=== PATIENT | female | born 1955 | race Caucasian/White ===

== ENCOUNTER 2018-07-13 07:30 | Inpatient (IN) | payer OTHER ==
[~2018-07-13] VITALS: Ht 147.3 cm; Wt 74.4 kg
[2018-07-13] MEDS ORDERED: AMILODIPINE PO (13:07)
[2018-07-13] MEDS ORDERED: EVISTA60 MG PO (13:07)
[2018-07-13] MEDS ORDERED: GABAPENTIN100 MG PO (13:08)
[2018-07-13] MEDS ORDERED: MELOXICAM15 MG PO (13:08)
[2018-07-13] MEDS ORDERED: CETIRIZINE PO (13:09)
[2018-07-13] MEDS ORDERED: DICLO GEL1 EACH (13:10)
[2018-07-13] MEDS ORDERED: CYCLOBENZAPRINE10 MG PO (13:10)
[2018-07-13] MEDS ORDERED: M.V.I. ADULT10 ML IV (13:11)
[2018-07-13] MEDS ORDERED: COD LIVER OIL1 EACH PO (13:11)
[2018-07-13] MEDS ORDERED: [UNRECOGNIZED DRUG - OTHER] (13:11)
[2018-07-13] MEDS ORDERED: VIT C PO (13:12)
[2018-07-22] MEDS ORDERED: PERCOCET 5-3251 EACH PO (08:35)
[2018-07-22] MEDS ORDERED: ELIQUIS2.5 MG PO (08:35)
[2018-07-22] MEDS ORDERED: DUI500 PO (08:35)
== END 2018-07-22 12:19 | disposition home or self-care (01) | DRG 470 ==
LOC: SURG 07-19 06:33 → O/R 07-19 06:33 → SURH 07-19 07:00 → SURG 07-19 11:56
PROVIDERS: Orthopaedic Surgery
PROC: 0SNC0ZZ Release Right Knee Joint, Open Approach (ICD-10-PCS; 2018-07-19)
PROC: 0SRC0JZ Replacement of Right Knee Joint with Synthetic Substitute, Open Approach (ICD-10-PCS; principal; 2018-07-19 07:00)
DX: M17.11 Unilateral primary osteoarthritis, right knee (principal); D62 Acute posthemorrhagic anemia; M81.0 Age-related osteoporosis without current pathological fracture; I10 Essential (primary) hypertension; E66.09 Other obesity due to excess calories